=== PATIENT | female | born 1940 | race African-American/Black ===

== ENCOUNTER 2020-01-30 19:25 | Inpatient (IN) | payer OTHER ==
[~2020-01-30] VITALS: Ht 170.2 cm; Wt 77.6 kg
[2020-01-30] MEDS ORDERED: LEVOTHYROXINE125 MCG PO (19:42)
[2020-01-30] MEDS ORDERED: VOLTAREN GEL 1100 G1 TOP (19:45)
[2020-01-30] MEDS ORDERED: METHOTREXATE 22.5 M1 PO (19:49)
[2020-01-30] MEDS ORDERED: NORCO 5-325 TA1 EAC2 PO (19:49)
[2020-01-30] MEDS ORDERED: FOSAMAX 70 MG T70 MG PO (19:50)
[2020-01-30] MEDS ORDERED: FOLIC ACID1 MG PO (19:50)
[2020-01-30] MEDS ORDERED: FLONASE 0.05%50 MCG NARES (19:51)
[2020-01-30] MEDS ORDERED: COLACE100 MG PO (19:51)
[2020-01-30] MEDS ORDERED: CALCIUM 600 +1 EAC2 PO (19:52)
[2020-01-30] MEDS ORDERED: ASA81BEC PO (19:52)
[2020-01-30] MEDS ORDERED: TYLENOL ARTHRI650 MG PO (19:52)
[2020-01-30] MEDS ORDERED: SUPER THERAVIT1 EACH PO (19:54)
[2020-01-30] MEDS ORDERED: VITAMIN D31250 MCG PO (19:54)
[2020-01-31 07:13] LABS: TSH 3.23 uIU/mL (0.358-3.740)
[2020-01-31 07:45] LABS: FOLIC ACID 38.4 ng/mL (8.6-58.9)
[2020-01-31 08:54] VITALS: BP 140/88
[2020-01-31 11:01] VITALS: BP 140/88
[2020-01-31 19:35] VITALS: BP 143/88
[2020-01-31 20:45] VITALS: BP 143/88
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
[2020-02-01 07:53] VITALS: BP 107/68
[2020-02-01 19:25] VITALS: BP 122/72
[2020-02-01 23:06] LABS: HIV ANTIBODY Non Reactive (Non Reactive)
[2020-02-02 08:56] VITALS: BP 128/87
[2020-02-02 10:12] VITALS: BP 128/87
[2020-02-02 20:06] LABS: SYPHILIS AB Non Reactive (Non Reactive)
[2020-02-02 20:16] VITALS: BP 134/85
[2020-02-03 08:30] VITALS: BP 100/62
[2020-02-03 17:13] VITALS: BP 100/62
[2020-02-03 19:18] VITALS: BP 103/65
[2020-02-04 07:53] VITALS: BP 102/64
[2020-02-04 10:22] VITALS: BP 102/64
[2020-02-04 11:44] VITALS: BP 102/64
[2020-02-04 19:40] VITALS: BP 112/67
[2020-02-05 06:38] VITALS: BP 115/72
[2020-02-05 08:00] VITALS: BP 115/72
[2020-02-05] MEDS ORDERED: TRAZODONE HCL50 MG PO (08:47)
[2020-02-05] MEDS ORDERED: RISPERDAL 1 MG T1 MG PO (08:48)
[2020-02-05] MEDS ORDERED: NAMENDA 5 MG TAB5 M1 PO ×4 (08:49→08:51)
[2020-02-05 09:11] VITALS: BP 102/64
== END 2020-02-05 10:00 | disposition home or self-care (01) | DRG 57 ==
LOC: SBH 19:25
PROVIDERS: Nurse Practitioner Family; ADMIT Psychiatry & Neurology Psychiatry; ATTEND Psychiatry & Neurology Psychiatry
DX: G30.9 Alzheimer's disease, unspecified (principal); F01.51 Vascular dementia, unspecified severity, with behavioral disturbance; F02.81 Dementia in other diseases classified elsewhere, unspecified severity, with behavioral disturbance; F29 Unspecified psychosis not due to a substance or known physiological condition; M06.9 Rheumatoid arthritis, unspecified; M19.90 Unspecified osteoarthritis, unspecified site; Z88.6 Allergy status to analgesic agent; Z79.899 Other long term (current) drug therapy; Z90.49 Acquired absence of other specified parts of digestive tract; Z90.710 Acquired absence of both cervix and uterus; E89.0 Postprocedural hypothyroidism
CPT/HCPCS: 10880